=== PATIENT | male | born 1975 | race Caucasian/White ===

== ENCOUNTER 2018-12-28 01:01 | Emergency (ER) | payer SELFPAY ==
[~2018-12-28] VITALS: Ht 172.7 cm; Wt 70.0 kg
[2018-12-28 02:39] LABS: CHLORIDE 107 mEq/L (98-107)
[2018-12-28 02:40] LABS: BASOPHILS % 0.9 % (0.0-2.0); HEMATOCRIT. 37.5 % (42.0-52.0); HEMOGLOBIN. 12.9 g/dL (14.0-18.0); LYMPHOCYTES % 29.3 % (20.0-50.0); MEAN CORPUSCULAR HEMOGLOBIN 32.8 pg (28.0-32.0); MEAN CORPUSCULAR VOLUME 95.6 fL (80.0-94.0); MEAN PLATELET VOLUME 9.4 fl (7.4-10.4); MONOCYTES % 7.5 % (2.0-8.0); NEUTROPHILS % 61.3 % (40.0-76.0); PLATELET 228 x1000/uL (130-400); RED BLOOD CELL COUNT 3.93 mill/uL (4.7-6.1); RED CELL DISTRIBUTION WIDTH 12.9 % (11.6-14.6)
[2018-12-28 02:44] LABS: ETHANOL BLOOD < 10 mg/dL
[2018-12-28 02:48] LABS: CREATINE KINASE 256 IU/L (39-308)
[2018-12-28 03:54] VITALS: BP 105/76
== END 2018-12-28 04:10 | disposition home or self-care (01) ==
LOC: ER 01:01
DX: T43.621A Poisoning by amphetamines, accidental (unintentional), initial encounter (principal); F91.1 Conduct disorder, childhood-onset type; F17.210 Nicotine dependence, cigarettes, uncomplicated; Z71.6 Tobacco abuse counseling; Y92.018 Other place in single-family (private) house as the place of occurrence of the external cause
CPT/HCPCS: 36415; 80053; 80307; 80320; 80329; 82550; 85025; 99283; 99406; Z7610; G0480